=== PATIENT | male | born 1945 | race Caucasian/White ===

== ENCOUNTER 2017-12-11 14:52 | Emergency (ER) | payer MEDICARE ==
[~2017-12-11] VITALS: Ht 182.9 cm; Wt 100.0 kg
[2017-12-11 15:41] VITALS: BP 156/74; PULSE 59; RESP 20; TEMP 98; O2SAT 97
--- NOTE | 2017-12-11 16:21 | RADRPT ---
EXAM DATE/TIME: 12/11/2017 16:03 [place] COMPARISON: No previous studies available for comparison. INDICATIONS : Hematuria today. ORAL CONTRAST: No oral contrast ingested. RADIATION DOSE: 8.52 CTDIvol (mGy) MEDICAL HISTORY : Renal calculi. SURGICAL HISTORY : Prostatectomy. ENCOUNTER: Initial ACUITY: 1 day PAIN SCALE: 0/10 LOCATION: Bilateral flank TECHNIQUE: Volumetric scanning of the abdomen and pelvis was performed. Using automated exposure control and ad justment of the mA and/or kV according to patient size, radiation dose was kept as low as reasonably achievable to obtain optimal diagnostic quality images. DICOM format image data is available electro nically for review and comparison. FINDINGS: LOWER LUNGS: The visualized lower lungs are clear. LIVER: Homogeneous density without lesion. There is no dilation of the biliary tree. No calcified gallston es. SPLEEN: Normal size without lesion. PANCREAS: Within normal limits. KIDNEYS: Normal in size and shape. There is no stone or hydronephrosis. There is a tiny 6 mm hyperdense corti terrance nodule along the posterior aspect of the right kidney which is indeterminate. Multiple renal cyst s are noted with the largest measuring 2.5 cm in the upper pole. ADRENAL GLANDS: Within normal limits. VASCULAR: Infrarenal abdominal aortic aneurysm measuring 3.4 x 3.0 cm is noted. BOWEL/MESENTERY: Uncomplicated colonic diverticulosis is noted. ABDOMINAL WALL: Within normal limits. RETROPERITONEUM: There is no lymphadenopathy. BLADDER: No wall thickening or mass. REPRODUCTIVE: Within normal limits. INGUINAL: There is no lymphadenopathy or hernia. MUSCULOSKELETAL: Degenerative changes are noted throughout the thoracolumbar spine. Bilateral pars defects are noted a t L5. CONCLUSION: 1. No acute obstructive uropathy. 2. Uncomplicated colonic diverticulosis. 3. Infrarenal abdominal aortic aneurysm measuring 3.4 cm AP by 3.0 cm transverse. 4. Tiny 6 mm hyperdense cortical nodule along the posterior aspect of the right kidney which is indet erminate on this unenhanced examination. Outpatient enhanced MRI of the abdomen may be helpful for fu rther characterization if clinically indicated. 5. Left renal cysts with the largest measuring 2.5 cm in the upper pole. 6. Degenerative changes throughout the thoraco-lumbar spine. 7. Bilateral pars defects at L5. Triston Marie MD on December 11, 2017 at 16:11 Board Certified Radiologist. This report was verified electronically.
[2017-12-11] MEDS ORDERED: ASPI-183 PO (17:24)
[2017-12-11] MEDS ORDERED: ATEN50TA PO (17:24)
[2017-12-11] MEDS ORDERED: AMLO5TAB2 PO (17:24)
[2017-12-11] MEDS ORDERED: LISI-519 PO (17:24)
[2017-12-11 17:31] VITALS: PULSE 53; RESP 16; O2SAT 98
--- NOTE | 2017-12-11 17:36 | PD ---
HPI Chief Complaint: Flank/Kidney Pain Time Seen by Provider: 17:34 Travel History International Travel<30 days: No Contact w/Intl Traveler<30days: No Traveled to known affect area: No History of Present Illness HPI 72-year-old male patient with history of kidney stones, hypertension, high cholesterol, previous prostate cancer, presents to the ER today because he states that he had passed several stones a few days ago, had hematuria, and is still having some dysuria, thinks that it feels a little like he is passing stones again. He denies any nausea, vomiting, fevers, or other symptoms. He states that he is actually not in pain now. Modifying Factors: None Associated Signs & Symptoms: Passing kidney stones, hematuria, dysuria Risk Factors: History of kidney stones PFSH Past Medical History Cancer: Yes (PROSTATE) High Cholesterol: Yes Hypertension: Yes Past Surgical History Prostatectomy: Yes Social History Alcohol Use: Yes (occassionally) Tobacco Use: No Substance Use: No Allergies-Medications (Allergen,Severity, Reaction): Coded Allergies: No Known Allergies (Unverified , 12/11/17) Reported Meds & Prescriptions Reported Meds & Active Scripts Active Reported Aspirin 325 Mg Tab 325 Mg PO DAILY Amlodipine (Amlodipine Besylate) 5 Mg Tab 5 Mg PO DAILY Atenolol 50 Mg Tab 50 Mg PO DAILY Lisinopril 5 Mg Tab 5 Mg PO DAILY Review of Systems Except as stated in HPI: all other systems reviewed are Neg Physical Exam Narrative GENERAL: Well-developed elderly male patient currently in no acute distress. Awake and oriented 3. SKIN: Focused skin assessment warm/dry. HEAD: Atraumatic. Normocephalic. EYES: Pupils equal and round. No scleral icterus. No injection or drainage. ENT: No nasal bleeding or discharge. Mucous membranes pink and moist. NECK: Trachea midline. No JVD. CARDIOVASCULAR: Regular rate and rhythm. No murmur appreciated. RESPIRATORY: No accessory muscle use. Clear to auscultation. Breath sounds equal bilaterally. GASTROINTESTINAL: Abdomen soft, non-tender, nondistended. Hepatic and splenic margins not palpable. Benign. BACK: No CVA tenderness. No rash. No point tenderness on palpation of the spine. MUSCULOSKELETAL: No obvious deformities. No clubbing. No cyanosis. No edema. NEUROLOGICAL: Awake and alert. No obvious cranial nerve deficits. Motor grossly within normal limits. Normal speech. PSYCHIATRIC: Appropriate mood and affect; insight and judgment normal. Data Data Last Documented VS Vital Signs Date Time Temp Pulse Resp B/P (MAP) Pulse Ox O2 Delivery O2 Flow Rate FiO2 12/11/17 17:31 53 16 98 Room Air 12/11/17 15:41 98.0 156/74 (101) Orders Orders Complete Blood Count With Diff (12/11/17 15:43) Comprehensive Metabolic Panel (12/11/17 15:43) Urinalysis - C+S If Indicated (12/11/17 15:43) Ct Abd/Pel W/O Iv Contrast (12/11/17 15:43) Ed Discharge Order (12/11/17 18:20) Labs Laboratory Tests Test 12/11/17 17:18 12/11/17 17:30 Urine Color YELLOW Urine Turbidity CLEAR Urine pH 5.5 Urine Specific [place] 1.017 Urine Protein TRACE mg/dL Urine Glucose (UA) NEG mg/dL Urine Ketones NEG mg/dL Urine Occult Blood TRACE Urine Nitrite NEG Urine Bilirubin NEG Urine Urobilinogen LESS THAN 2.0 MG/DL Urine Leukocyte Esterase NEG Urine RBC 15 /hpf Urine WBC 4 /hpf Urine Amorphous Sediment RARE Urine Mucus FEW /lpf Microscopic Urinalysis Comment CULT NOT INDICATED White Blood Count 8.6 TH/MM3 Red Blood Count 5.11 MIL/MM3 Hemoglobin 14.5 GM/DL Hematocrit 42.8 % Mean Corpuscular Volume 83.8 FL Mean Corpuscular Hemoglobin 28.3 PG Mean Corpuscular Hemoglobin Concent 33.8 % Red Cell Distribution Width 14.2 % Platelet Count 223 TH/MM3 Mean Platelet Volume 8.9 FL Neutrophils (%) (Auto) 65.7 % Lymphocytes (%) (Auto) 23.3 % Monocytes (%) (Auto) 8.3 % Eosinophils (%) (Auto) 2.2 % Basophils (%) (Auto) 0.5 % Neutrophils # (Auto) 5.6 TH/MM3 Lymphocytes # (Auto) 2.0 TH/MM3 Monocytes # (Auto) 0.7 TH/MM3 Eosinophils # (Auto) 0.2 TH/MM3 Basophils # (Auto) 0.0 TH/MM3 CBC Comment DIFF FINAL Differential Comment Blood Urea Nitrogen 18 MG/DL Creatinine 1.02 MG/DL Random Glucose 95 MG/DL Total Protein 7.5 GM/DL Albumin 3.6 GM/DL Calcium Level 9.2 MG/DL Alkaline Phosphatase 80 U/L Aspartate Amino Transf (AST/SGOT) 17 U/L Alanine Aminotransferase (ALT/SGPT) 23 U/L Total Bilirubin 0.5 MG/DL Sodium Level 141 MEQ/L Potassium Level 3.9 MEQ/L Chloride Level 104 MEQ/L Carbon Dioxide Level 30.7 MEQ/L Anion Gap 6 MEQ/L Estimat Glomerular Filtration Rate 71 ML/MIN MDM Medical Decision Making Medical Screen Exam Complete: Yes Emergency Medical Condition: Yes Medical Record Reviewed: Yes Interpretation(s) Laboratory Tests Test 12/11/17 17:18 12/11/17 17:30 Urine Occult Blood TRACE (NEG) Urine RBC 15 /hpf (0-3) Urine Mucus FEW /lpf (OCC) Monocytes (%) (Auto) 8.3 % (0.0-8.0) Estimat Glomerular Filtration Rate 71 ML/MIN (>89) Last 24 hours Impressions Abdomen/Pelvis CT 12/11/17 1543 Signed Impressions: Service Date/Time: Monday, December 11, 2017 16:03 - CONCLUSION: 1. No acute obstructive uropathy. 2. Uncomplicated colonic diverticulosis. 3. Infrarenal abdominal aortic aneurysm measuring 3.4 cm AP by 3.0 cm transverse. 4. Tiny 6 mm hyperdense cortical nodule along the posterior aspect of the right kidney which is indeterminate on this unenhanced examination. Outpatient enhanced MRI of the abdomen may be helpful for further characterization if clinically indicated. 5. Left renal cysts with the largest measuring 2.5 cm in the upper pole. 6. Degenerative changes throughout the thoraco-lumbar spine. 7. Bilateral pars defects at L5. Triston Marie MD Differential Diagnosis Renal colic versus UTI/pyelonephritis versus cystitis versus hematuria Narrative Course CAT scan did not show any signs of acute obstructive nephropathy, he does have several kidney stones. At this point, no other acute issues were identified. Plan would be to release him with follow-up to primary care doctor. His UA did not show any signs a UTI although there was blood there. My plan would be to put him on Pyridium to help with some of the symptoms. Plan was discussed with him he states understanding. Diagnosis Primary Impression: Hematuria Additional Impression: Renal colic Med/Other Pt SpecificInfo: Prescription(s) given Scripts Phenazopyridine (Pyridium) 100 Mg Tab 100 MG PO Q8H Y for DYSURIA, #12 TAB 0 Refills Prov: Kellen Abdul MD 12/11/17 Disposition: 01 DISCHARGE HOME Condition: Stable Kellen Abdul MD Dec 11, 2017 17:36
[2017-12-11 17:55] LABS: AMORPHOUS SEDIMENT, URINE RARE; BILIRUBIN, URINE NEG (NEG); BLOOD, URINE TRACE (NEG); GLUCOSE,URINE NEG (NEG); KETONE, URINE NEG (NEG); MUCUS URINE FEW /lpf (OCC); NITRITE,URINE NEG (NEG); PH, URINE 5.5 (5.0-8.5); URINE COLOR YELLOW (YELLW/STRAW); URINE LEUKOCYTE ESTERASE NEG (NEG)
[2017-12-11 17:59] LABS: AUTOMATED NEUTROPHIL # 5.6 TH/MM3 (1.8-7.7); BASOPHIL % 0.5 % (0.0-2.0); EOSINOPHIL # 0.2 TH/MM3 (0-0.4); EOSINOPHIL % 2.2 % (0.0-4.0); HEMATOCRIT 42.8 % (39.0-51.0); HEMOGLOBIN 14.5 GM/DL (13.0-17.0); LYMPH % 23.3 % (9.0-44.0); MEAN CELL VOLUME 83.8 FL (80.0-100.0); MEAN CORPUSCULAR HEMOGLOBIN 28.3 PG (27.0-34.0); MEAN CORPUSCULAR HGB CONC 33.8 % (32.0-36.0); MEAN PLATELET VOLUME 8.9 FL (7.0-11.0); MONO % 8.3 % (0.0-8.0); MONOCYTE # 0.7 TH/MM3 (0-0.9); NEUT % 65.7 % (16.0-70.0); PLATELET COUNT 223 TH/MM3 (150-450); RED BLOOD COUNT 5.11 MIL/MM3 (4.50-5.90); RED CELL DISTRIBUTION WIDTH 14.2 % (11.6-17.2); WHITE BLOOD COUNT 8.6 TH/MM3 (4.0-11.0)
[2017-12-11 18:03] LABS: ALBUMIN 3.6 GM/DL (3.4-5.0); ALT (GPT) 23 U/L (12-78); AST (GOT) 17 U/L (15-37); BICARBONATE 30.7 MEQ/L (21.0-32.0); BLOOD UREA NITROGEN 18 MG/DL (7-18); CALCIUM 9.2 MG/DL (8.5-10.1); CHLORIDE 104 MEQ/L (98-107); CREATININE 1.02 MG/DL (0.60-1.30); GLOMERULAR FILTRATION RATE 71 ML/MIN (>89); GLUCOSE,RANDOM 95 MG/DL (74-106); SODIUM (NA) 141 MEQ/L (136-145)
[2017-12-11 18:06] LABS: ALKALINE PHOSPHATASE 80 U/L (45-117); TOTAL BILIRUBIN ADULT 0.5 MG/DL (0.2-1.0); TOTAL PROTEIN 7.5 GM/DL (6.4-8.2)
[2017-12-11] MEDS ORDERED: PHEN0.4T PO (18:28)
== END 2017-12-11 19:18 | disposition home or self-care (01) ==
LOC: NEPD 14:52
DX: R31.9 Hematuria, unspecified (principal); N23 Unspecified renal colic; N28.1 Cyst of kidney, acquired; K57.30 Diverticulosis of large intestine without perforation or abscess without bleeding; I10 Essential (primary) hypertension; Z87.442 Personal history of urinary calculi
CPT/HCPCS: 74176; 80053; 81001; 85025; 99284